=== PATIENT | male | born 1995 | race Hispanic/Latino ===

== ENCOUNTER 2020-03-15 09:16 | Emergency (ER) | payer OTHER ==
[~2020-03-15] VITALS: Ht 177.8 cm; Wt 87.7 kg
--- NOTE | 2020-03-15 09:46 | Emergency Department Note ---
History of Present Illnes History of Present Illness Chief Complaint: painful foreskin tear while having sex History of Present Illness This is a 24 year old male. was doing well until 1 week ago then ripped the foreskin frenelum while having sex. then today started to have the same pain when having sex. Historian: Patient Arrival Mode: Car History limited by: condition of the patient (normal) Water Resource Specialist Required: No Onset (how long ago): week(s) (1) Location: see above Quality: sharp Radiation: Reports non-radiation Severity: moderate Onset quality: sudden Duration (how long): week(s) (1) Timing of current episode: constant Progression: unchanged Chronicity: recurrent Context: Reports trauma/injury Relieving factors: rest Exacerbating factors: movement Associated symptoms: Reports denies other symptoms Treatments prior to arrival: none Past Medical/Family History Physician Review I have reviewed the patient's past medical and family history. Any updates have been documented here. Past Medical History Recent Fever: No Clinical Suspicion of Infectio: No New/Unexplained Change in Ment: No Past Medical History: None Other Surgery: right arm surgery ankle surgery Social History Smoking Cessation: Never Smoker Counseling Performed: No Alcohol Use: None Any Illegal Drug Use: No Physically hurt or threatened: No Other Any Pre-Existing Lines (PICC,: No Review of Systems Review of Systems Constitutional: Reports no symptoms EENTM: Reports no symptoms Cardiovascular: Reports no symptoms Respiratory: Reports no symptoms Gastrointestinal: Reports no symptoms Genitourinary: Reports as per HPI Musculoskeletal: Reports no symptoms Integumentary: Reports no symptoms Neurological: Reports no symptoms Psychological: Reports no symptoms Endocrine: Reports no symptoms Hematological/Lymphatic: Reports no symptoms Review of other systems: All other systems negative Physical Exam Related Data Allergies: Coded Allergies: No Known Allergies (Unverified , 03/15/20) Triage Vital Signs Vital Signs Date Time Temp Pulse Resp B/P (MAP) Pulse Ox O2 Delivery O2 Flow Rate FiO2 03/15/20 09:22 98.5 60 16 119/69 99 Room Air Vital signs reviewed: Yes Physical Exam CONSTITUTIONAL Constitutional: Present well-developed, Present well-nourished HENT HENT: Present normocephalic, Present atraumatic, Present oropharynx clear/moist, Present nose normal HENT L/R: Present left ext ear normal, Present right ext ear normal EYES Eyes: Reports PERRL, Reports conjunctivae normal NECK Neck: Present ROM normal PULMONARY Pulmonary: Present effort normal, Present breath sounds normal CARDIOVASCULAR Cardiovascular: Present regular rhythm, Present heart sounds normal, Present capillary refill normal, Present normal rate GASTROINTESTINAL Abdominal: Present soft, Present nontender, Present bowel sounds normal GENITOURINARY Genitourinary: Present other (foreskin frenulum tear. no bleeding) SKIN Skin: Present warm, Present dry MUSCULOSKELETAL Musculoskeletal: Present ROM normal NEUROLOGICAL Neurological: Present alert, Present oriented x 3, Present no gross motor or sensory deficits PSYCHOLOGICAL Psychological: Present mood/affect normal, Present judgement normal Assessment & Plan Medical Decision Making MDM see below Assessment & Plan Final Impression: (1) Foreskin problem Depart Disposition: HOME, SELF-CARE Last Vital Signs Date Time Temp Pulse Resp B/P (MAP) Pulse Ox O2 Delivery O2 Flow Rate FiO2 03/15/20 09:22 98.5 60 16 119/69 99 Room Air FLOWERSHILDA IRAIDA Mar 15, 2020 09:46
--- OUTSIDE RECORDS SUMMARY | 2020-03-21 17:59 | XMS REPORT | Clinical Summary ---
Author Author [facility] Address Unknown Phone Unavailable Care Team Providers Care Engineer Name Role Phone PCP Unavailable Allergies No Known Allergies Medications Not on file Active Problems Not on file Social History Date Tobacco Use Types Packs/Day Years Used Never Assessed Sex Assigned at Date Recorded Not on file Last Filed Vital Signs Not on file Plan of Treatment Health Maintenance Due Date Last Done Comments INFLUENZA VACCINE (#1) 2020 Results Not on fileafter 03/15/2019 Insurance Type Payer Benefit Subscriber ID Effective Phone Address Plan / Dates Group HMO/POS [facility] [id number] CARE POS [employer] [address] (Home) [place], [place] [phone]
--- OUTSIDE RECORDS SUMMARY | 2020-03-21 17:59 | XMS REPORT | Continuity of Care Document ---
Author Author [facility] t Organization [facility] Address [address] [place] [address] Phone Unavailable Care Team Providers Care Salt Operator Name Role Phone Unavailable Unavailable Payers Payer Name Policy Type Policy Number Effective Date Expiration Date S ource Problems This patient has no known problems. Allergies, Adverse Reactions, Alerts Allergy Name Allergy Type Status Severity Reaction(s) Onset Date Inacti ve Date Treating Clinician Comments Source No Known Allergies DA Active U 2018-08-29 00:00:00 [facility] No Known Contrast Allergies DA Active U 2007-08-25 00:00: 00 [facility] No Known Drug Allergies DA Active U 2007-08-25 00:00:00 [facility] No Known Food Allergies DA Active U 2007-08-25 00:00:00 [facility] No Known Other Allergies DA Active U 2007-08-25 00:00:00 [facility] Social History Social Habit Start Date Stop Date Quantity Comments Source Sex Assigned At [facility] Medications This patient has no known medications. Procedures This patient has no known procedures. Plan of Care Planned Activity Planned Date Details Comments Source Future Scheduled Test 2020-01-16 00:00:00 INFLUENZA VACCINE (#1) [code = INFLUENZA VACCINE (#1)] [facility] Test Description Test Time Test Comments Results Result Comments Source MR, CARDIAC, WITHOUT 2018-09-30 17:57:00 Reason for Exam:->cardi ac arrest FINAL REPORT Cardiac MRI, 30 Sep 2018 INDICATION: This is a 23-year old male with aborted sudden cardiac on August 2018, with collapse and whilst running, presents for compressive cardiac assessment. Scanning blood pressure was 102/43, patient weight 198 pounds, with height of 70 inches. Body surface area is estimated to be approximately 2.11 sq m. TECHNIQUE: [employer] DARWIN MRI scanner. Morphologic and dynamic cine imaging was performed in multiple projections before and after contrast administration. Thereafter, gadolinium was administered, which was then followed by viability/scar imaging. A phased array surface coil was used for enhanced resolution and [id number] ratio. Please refer to the contrast sheet scanned in the EPIC system for the amount and route of contrast given. FINDINGS: The chest wall and mediastinum are unremarkable. Limited imaging of the lungs reveals no gross abnormality; MR is not optimizing assessment of pulmonary parenchymal lung disease. The cardiac chambers demonstrate normal atrioventricular concordance and systemic and pulmonary venous return. The thoracic aorta is normal in course, calibre, and contour. In the parasternal long axis orientation, the aortic root measure 3.6 cm at that is still within normal reference range. The pericardium and pulmonary arteries have normal appearance. No pericardial effusion is seen in the central pulmonary artery is normal in calibre. The left ventricle is normal in size, shape, and function. There are no segmental wall motion abnormalities. Normal systolic thickening is seen throughout the right ventricular myocardium, including the left ventricular outflow tract. No generalised or localised myocardial hypertrophy is appreciated. Quantitative values are as follows: EDV = 209 cc; ESV = 85 cc; stroke volume = 124 cc; and ejection fraction = 59%. Calculated absolute cardiac output = 8.1 liters/min. Absolute left ventricular mass = 112 grams. Indexed LVEDV = 99 cc/sq m that is still within normal reference range. There is no evidence of hypertrophic cardiomyopathy or left ventricular non-compaction. Viability / scar imaging reveals full thickness, viable myocardium in the entire left ventricle. There is no prior myocardial damage. Ventricular thrombus is not identified. Global left ventricular long axis strain is estimated to be -23.5%, with normal MRI reference range for male of -16.5 + / - 2.2%. A focus examination was performed in the right ventricle, including the infundibulum. There is no definitive findings to suggest ARVD. Specifically, there is no fatty or fibrous replacement of the right ventricle. No regional wall motion abnormalities are identified including the right ventricular outflow tract. Overall right ventricular function is normal. There is no abnormal enhancement of the right ventricular myocardium after gadolinium administration. Quantitative right ventricular functional values are as follows: EDV = 214 cc; ESV = 98 cc; stroke volume = 116 cc; and ejection fraction = 54%. Indexed RVEDV = 101 cc/sq m that is still within normal reference range. In the dedicated gradient echo images, the left coronary artery arises from the left sinus of Valsalva, that give rise to the left anterior descending the left circumflex artery. The right coronary artery arises from the right sinus of Valsalva. Cine imaging and flow quantification reveal normal aortic, mitral, and tricuspid valve function. No evidence of mitral valve prolapse or aortic stenosis is identified. Left atrial size is unremarkable in the parasternal long axis orientation. CONCLUSIONS: 1. The left ventricle is normal in size and function. Ejection fraction is quantified to be 59%. Quantitative left ventricular functional values are as described above. Viability/scar imaging reveals full thickness, viable appearing myocardium in the entire left ventricle. No abnormal enhancement of the myocardium is seen after contrast administration. No imaging findings of hypertrophic cardiomyopathy, hypertrophic cardiomyopathy, all left ventricular noncompaction. Global left ventricular long axis strain is well within normal reference range. 2. There is no definitive MRI findings to indicate the presence of any right ventricular cardiomyopathy. There is no focal or generalised aneurysmal dilation of the right ventricle. Normal contraction is seen in the right ventricular myocardium. No regional wall motion abnormalities are identified. Right ventricular function is normal. There is no abnormal enhancement of the right ventricular myocardium after gadolinium administration. There is no imaging criteria for ARVD. Quantitative right ventricular functional values are as described above. 3. Normal coronary artery origins. 4. Major findings were discussed with Dr. Waters at the time of dictation. Signed: Guanaco Ross MDReport Verified Date/Time: 09/30/2018 17:57:28 Reading Location: [place] [address] Cardiology MRI AWAKE AND DROWSY 2018-09-30 12:46:00 DATE OF REPORT: 09/30/2018NAME: Caroline MoffettnaMRN: [id number] of : 1995ACC: [id number]: [id number] time: 10:34Stop time: 11:05ICD-10: R56.9 CPT Code: 68817 HISTORY: Caroline Madrid is a 23 y.o. male with history of cardiac arrest on 08/29/18, with some unusual movements at that time ? seizure MEDICATIONS THAT COULD AFFECT EEG: None TECHNICAL SUMMARY: This is a digital EEG recorded with 32 input channels on a [employer] system, reviewed with bipolar and referential montages using the modified combinatorial system nomenclature. DESCRIPTION OF RECORD: During the maximally alert state, a 9-10 Hz posterior dominant rhythm was seen that was symmetric, reactive to eye opening and well regulated. More anteriorly, low voltage frontocentral beta predominated. Drowsiness was characterized by alpha attenuation and increased frontocentral theta, vertex sharp transients and POSTS. Stage 2 sleep was reached characterized by symmetric sleep spindles and K-complexes. HV: Adequate hyperventilation for 3 minutes is associated with a slight build up of slowing symmetrically. PHOTIC STIMULATION: Photic stimulation was done from 3-30 Hz;photoparoxysmal responses were absent. ELECTROCARDIOGRAM: EKG tracing reviewed, showing normal sinus rhythm IMPRESSION: Normal awake, drowsy, and asleep EEG study. There is no evidence for epileptiform abnormality, including a bsence of electrographic seizure. CLINICAL CORRELATION: An EEG without epileptiform discharges does not exclude the possibility of epilepsy. Lexi Patel MD, PhDEpilepsy Fellow Sukhjinder Engle MDNeurophysiology/Epilepsy Attending C METABOLIC PANEL 2018-09-01 05:22:00 Test Item SODIUM (test code = NA) 142 mmol/L 136-145 N POTASSIUM (test code = K) 3.8 mmol/L 3.5-5.1 N CHLORIDE (test code = CL) 108.0 mmol/L 98-107 H CARBON DIOXIDE (test code = CO2) 26.0 mmol/L 21-32 N ANION GAP (test code = GAP) 11.8 10-20 N GLUCOSE (test code = GLU) 90 mg/dL 74-106 N BLOOD UREA NITROGEN (test code = BUN) 13 mg/dL 7-18 N GLOMERULAR FILTRATION RATE (test code = GFR) > 60 mL/min >=60 Estimated GFR by using Modified MDRD formula.Chronic kidney disease is defined as either kidney damageor GFR <60 mL/min/1.73 m2 for >3 months. CREATININE (test code = CREAT) 0.80 mg/dL 0.7-1.3 N BUN/CREATININE RATIO (test code = BUN/CREA) 16.3 10-20 N CALCIUM (test code = CA) 8.9 mg/dL 8.5-10.1 N CBC W/AUTO [id number] 05:06:00* Test Item Value Reference Range Interpretation Comments WHITE BLOOD CELL (test code = WBC) 7.3 K/mm3 4.5-12.5 N RED BLOOD CELL (test code = RBC) 5.10 mill/mm3 4.0-5.8 N HEMOGLOBIN (test code = HGB) 15.0 gram/dL 13.0-17.5 N HEMATOCRIT (test code = HCT) 46.7 % 42.0-52.0 N MEAN CELL VOLUME (test code = MCV) 91.6 fL 80-98 N MEAN CELL HGB (test code = MCH) 29.4 picogram 27.0-33.0 N MEAN CELL HGB CONCETRATION (test code = MCHC) 32.1 gram/dL 33.0-36. 0 L RED CELL DISTRIBUTION WIDTH (test code = RDW) 12.8 % 11.6-16. 2 N RED CELL DISTRIBUTION WIDTH SD (test code = RDW-SD) 42.8 fL 37 .0-51.0 N PLATELET COUNT (test code = PLT) 214 K/mm3 150-450 N MEAN PLATELET VOLUME (test code = MPV) 11.1 fL 6.7-11.0 H NEUTROPHIL % (test code = NT%) 47.5 % 39.0-69.0 N IMMATURE GRANULOCYTE % (test code = IG%) 0.3 % 0.0-5.0 N LYMPHOCYTE % (test code = LY%) 37.9 % 25.0-55.0 N MONOCYTE % (test code = MO%) 9.2 % 0.0-10.0 N EOSINOPHIL % (test code = EO%) 4.7 % 0.0-5.0 N BASOPHIL % (test code = BA%) 0.4 % 0.0-1.0 N NUCLEATED RBC % (test code = NRBC%) 0.0 % 0-0 N NEUTROPHIL # (test code = NT#) 3.48 K/mm3 1.8-7.7 N IMMATURE GRANULOCYTE # (test code = IG#) 0.02 x10 3/uL 0-0.03 N LYMPHOCYTE # (test code = LY#) 2.77 K/mm3 1.0-5.0 N MONOCYTE # (test code = MO#) 0.67 K/mm3 0-0.8 N EOSINOPHIL # (test code = EO#) 0.34 K/mm3 0.0-0.5 N BASOPHIL # (test code = BA#) 0.03 K/mm3 0.0-0.2 N NUCLEATED RBC # (test code = NRBC#) 0.00 K/mm3 0.0-0.1 N MANUAL DIFF REQUIRED (test code = MDIFF) NO CBC W/AUTO [id number] 05:02:00* Test Item Value Reference Range Interpretation Comments WHITE BLOOD CELL (test code = WBC) K/mm3 4.5-12.5 RED BLOOD CELL (test code = RBC) mill/mm3 4.0-5.8 HEMOGLOBIN (test code = HGB) 15.0 gram/dL 13.0-17.5 N HEMATOCRIT (test code = HCT) 46.7 % 42.0-52.0 N MEAN CELL VOLUME (test code = MCV) fL 80-98 MEAN CELL HGB (test code = MCH) picogram 27.0-33.0 MEAN CELL HGB CONCETRATION (test code = MCHC) gram/dL 33.0-36. 0 RED CELL DISTRIBUTION WIDTH (test code = RDW) % 11.6-16. 2 RED CELL DISTRIBUTION WIDTH SD (test code = RDW-SD) fL 37 .0-51.0 PLATELET COUNT (test code = PLT) K/mm3 150-450 MEAN PLATELET VOLUME (test code = MPV) fL 6.7-11.0 NEUTROPHIL % (test code = NT%) % 39.0-69.0 IMMATURE GRANULOCYTE % (test code = IG%) % 0.0-5.0 LYMPHOCYTE % (test code = LY%) % 25.0-55.0 MONOCYTE % (test code = MO%) % 0.0-10.0 EOSINOPHIL % (test code = EO%) % 0.0-5.0 BASOPHIL % (test code = BA%) % 0.0-1.0 NEUTROPHIL # (test code = NT#) K/mm3 1.8-7.7 LYMPHOCYTE # (test code = LY#) K/mm3 1.0-5.0 MONOCYTE # (test code = MO#) K/mm3 0-0.8 EOSINOPHIL # (test code = EO#) K/mm3 0.0-0.5 BASOPHIL # (test code = BA#) K/mm3 0.0-0.2 [id number] 07:29:00* Test Item Value Reference Range Interpretation Comments GLUBED (test code = GLUBED) 126 mg/dL 74-106 H Performed by certified autocad operator at [facility] BASIC METABOLIC [id number] 06:34:00* Test Item Value Reference Range Interpretation Comments SODIUM (test code = NA) 143 mmol/L 136-145 N POTASSIUM (test code = K) 3.9 mmol/L 3.5-5.1 N CHLORIDE (test code = CL) 111.0 mmol/L 98-107 H CARBON DIOXIDE (test code = CO2) 26.0 mmol/L 21-32 N ANION GAP (test code = GAP) 9.9 10-20 L GLUCOSE (test code = GLU) 96 mg/dL 74-106 N BLOOD UREA NITROGEN (test code = BUN) 7 mg/dL 7-18 N GLOMERULAR FILTRATION RATE (test code = GFR) > 60 mL/min >=60 Estimated GFR by using Modified MDRD formula.Chronic kidney disease is defined as either kidney damageor GFR <60 mL/min/1.73 m2 for >3 months. CREATININE (test code = CREAT) 0.70 mg/dL 0.7-1.3 N BUN/CREATININE RATIO (test code = BUN/CREA) 10.0 10-20 N CALCIUM (test code = CA) 8.4 mg/dL 8.5-10.1 L BASIC METABOLIC [id number] 06:30:00* Test Item Value Reference Range Interpretation Comments SODIUM (test code = NA) 143 mmol/L 136-145 N POTASSIUM (test code = K) 3.9 mmol/L 3.5-5.1 N CHLORIDE (test code = CL) 111.0 mmol/L 98-107 H CARBON DIOXIDE (test code = CO2) mmol/L 21-32 ANION GAP (test code = GAP) 10-20 GLUCOSE (test code = GLU) mg/dL 74-106 BLOOD UREA NITROGEN (test code = BUN) mg/dL 7-18 GLOMERULAR FILTRATION RATE (test code = GFR) mL/min >=60 CREATININE (test code = CREAT) mg/dL 0.7-1.3 BUN/CREATININE RATIO (test code = BUN/CREA) 10-20 CALCIUM (test code = CA) mg/dL 8.5-10.1 CBC W/AUTO [id number] 05:16:00* Test Item Value Reference Range Interpretation Comments WHITE BLOOD CELL (test code = WBC) 6.6 K/mm3 4.5-12.5 N RED BLOOD CELL (test code = RBC) 4.76 mill/mm3 4.0-5.8 N HEMOGLOBIN (test code = HGB) 14.0 gram/dL 13.0-17.5 N HEMATOCRIT (test code = HCT) 43.5 % 42.0-52.0 N MEAN CELL VOLUME (test code = MCV) 91.4 fL 80-98 N MEAN CELL HGB (test code = MCH) 29.4 picogram 27.0-33.0 N MEAN CELL HGB CONCETRATION (test code = MCHC) 32.2 gram/dL 33.0-36. 0 L RED CELL DISTRIBUTION WIDTH (test code = RDW) 12.8 % 11.6-16. 2 N RED CELL DISTRIBUTION WIDTH SD (test code = RDW-SD) 42.7 fL 37 .0-51.0 N PLATELET COUNT (test code = PLT) 210 K/mm3 150-450 N MEAN PLATELET VOLUME (test code = MPV) 11.4 fL 6.7-11.0 H NEUTROPHIL % (test code = NT%) 42.6 % 39.0-69.0 N IMMATURE GRANULOCYTE % (test code = IG%) 0.3 % 0.0-5.0 N LYMPHOCYTE % (test code = LY%) 42.7 % 25.0-55.0 N MONOCYTE % (test code = MO%) 10.7 % 0.0-10.0 H EOSINOPHIL % (test code = EO%) 3.2 % 0.0-5.0 N BASOPHIL % (test code = BA%) 0.5 % 0.0-1.0 N NUCLEATED RBC % (test code = NRBC%) 0.0 % 0-0 N NEUTROPHIL # (test code = NT#) 2.80 K/mm3 1.8-7.7 N IMMATURE GRANULOCYTE # (test code = IG#) 0.02 x10 3/uL 0-0.03 N LYMPHOCYTE # (test code = LY#) 2.80 K/mm3 1.0-5.0 N MONOCYTE # (test code = MO#) 0.70 K/mm3 0-0.8 N EOSINOPHIL # (test code = EO#) 0.21 K/mm3 0.0-0.5 N BASOPHIL # (test code = BA#) 0.03 K/mm3 0.0-0.2 N NUCLEATED RBC # (test code = NRBC#) 0.00 K/mm3 0.0-0.1 N LIPID PROFILE (CORONARY RISK)2018 22:59:00* Test Item Value Reference Range Interpretation Comments TRIGLYCERIDES (test code = TRIG) 46 mg/dL 20-150 N CHOLESTEROL (test code = CHOL) 114 mg/dL 0-200 N CHOLESTEROL/HDL RATIO (test code = CHOLHDL) 1.0 RATIO 0-4.9 N RISK ASSOCIATED WITH CHOL/HDL RATIOS: Risk Male Female1/2 AVERAGE 3.43 3.27AVERAGE 4.97 4.442X AVERAGE 9.55 7.053X AVERAGE 23.39 11.04 REFERENCE VALUE IS RELATED TO RISK LEVELS ASRECOMMENDED BY THE OWEN. HEART, LUNG, AND BLOOD INST. HDL CHOLESTEROL (test code = HDL) 61 mg/dL 40-60 H LIPOPROTEIN LDL (test code = LDL) 51 mg/dL 100-129 L Reference Interval: mg/dL mmol/L Optimal <100 <2.6Near/above optimal 100-129 2.6- 3.3Borderline High 130-159 3.4-4.1High 160-189 4.1-4.9Very High >=190 >=4.9========= This LDL result is a direct measurement.========= [id number] 22:59:00* Test Item Value Reference Range Interpretation Comments CKMB (test code = CKMBT) 1.9 ng/mL 0-6.0 N [id number] 22:59:00* Test Item Value Reference Range Interpretation Comments TROPONIN-I (test code = TROPI) 0.087 ng/mL 0-0.045 HH RESULT VERIFIED BY REPEAT ANALYSIS - MRI BRAIN W/O [id number] 12:46:00 FAX: Mackenzie Kaur MD [phone] Wilsey: [facility]: [facility] FAX: Sukhjinder Stone NP [phone] Name: JEANMARIECAROLINE URRUTIA [facility] : 1995 Age/S: 23/M [address] Unit #: [id number] Loc: [place] [address] Phys: Sukhjinder Stone NP Acct: [id number] Dis Date: Status: ADM IN PHONE #: [phone] Exam Date: 2018 1232 FAX #: [phone] Reason: cardiac arrest/AMS EXAMS: CPT CODE: [id number] MRI BRAIN W/O CONTRAST [id number] HISTORY: Cardiac arrest and confusion. COMPARISON: Head CT from previous day. MRI brain without contrast: No acute territorial vascular or acute lacunar infarction. No MR evide nce for hemorrhage is noted. The palmer-white matter differentiation is pres erved. No cerebral edema. No extra-axial fluid collections noted. No white matter lesions. No herniation, hydrocephalus or midline shift. Ventricle remains midline. Expected flow-voids are noted within the major in tracranial vasculature. VII and VIII nerve complex are symmetrical and nor mal. Mastoid air cells are clear. Sinuses are clear. Intraorbital contents are unremarkable. Midbrain, winnie and medulla are without ma ss effect. No cerebellar ectopia. Pituitary gland, optic chiasm and corpus callosum are normal. Clivus with normal marrow signal. Symmetrical hippoc ampi. No mesial temporal sclerosis. No parenchymal mass this noncontrast s tudy. IMPRESSION: No acute territorial vascula r or acute lacunar infarction. Palmer-white matter differentiation is pres erved. No cerebral edema. No herniation, hydrocephalus or midline shift. at 1246 Reported and signed by: Elton Velázquez M.D. CC: Mackenzie Mathew MD; Sukhjinder Stone NP Technologist: CONNIE GIL,RT - MRI Trntxrd Date/Time/By: 2018 (1 149) : By: [email or web address] Orig Print D/T: S: 2018 (3482) PAGE 1 Signed Report [id number] 12:27:00* Test Item Value Reference Range Interpretation Comments TROPONIN-I (test code = TROPI) 0.155 ng/mL 0-0.045 COMMENTS TO DISTRICT DIRECTOR: COLLECT 3 HOURS AFTER PREVIOUS [id number] 08:43:00* Test Item Value Reference Range Interpretation Comments TROPONIN-I (test code = TROPI) 0.211 ng/mL 0-0.045 COMPREHENSIVE METABOLIC [id number] 08:39:00* Test Item Value Reference Range Interpretation Comments SODIUM (test code = NA) 143 mmol/L 136-145 N POTASSIUM (test code = K) 3.7 mmol/L 3.5-5.1 N CHLORIDE (test code = CL) 113.0 mmol/L 98-107 H CARBON DIOXIDE (test code = CO2) 22.0 mmol/L 21-32 N ANION GAP (test code = GAP) 11.7 10-20 N GLUCOSE (test code = GLU) 100 mg/dL 74-106 N BLOOD UREA NITROGEN (test code = BUN) 8 mg/dL 7-18 N GLOMERULAR FILTRATION RATE (test code = GFR) > 60 mL/min >=60 Estimated GFR by using Modified MDRD formula.Chronic kidney disease is defined as either kidney damageor GFR <60 mL/min/1.73 m2 for >3 months. CREATININE (test code = CREAT) 0.80 mg/dL 0.7-1.3 N BUN/CREATININE RATIO (test code = BUN/CREA) 10.0 10-20 N TOTAL PROTEIN (test code = PROT) 6.4 gram/dL 6.4-8.2 N ALBUMIN (test code = ALB) 3.8 g/dL 3.4-5.0 N GLOBULIN (test code = GLOB) 2.6 gram/dL 2.7-4.2 L ALBUMIN/GLOBULIN RATIO (test code = A/G) 1.5 0.75-1.50 N CALCIUM (test code = CA) 8.6 mg/dL 8.5-10.1 N BILIRUBIN TOTAL (test code = BILT) 1.50 mg/dL 0.0-1.0 H SGOT/AST (test code = AST) 83 IUnit/L 15-37 H SGPT/ALT (test code = ALT) 145 IUnit/L 12-78 H ALKALINE PHOSPHATASE TOTAL (test code = ALKP) 66 IUnit/L 45-117 N Note change in reference range due to change in reagent. COMPREHENSIVE METABOLIC [id number] 08:30:00* Test Item Value Reference Range Interpretation Comments SODIUM (test code = NA) 143 mmol/L 136-145 N POTASSIUM (test code = K) 3.7 mmol/L 3.5-5.1 N CHLORIDE (test code = CL) 113.0 mmol/L 98-107 H CARBON DIOXIDE (test code = CO2) mmol/L 21-32 ANION GAP (test code = GAP) 10-20 GLUCOSE (test code = GLU) mg/dL 74-106 BLOOD UREA NITROGEN (test code = BUN) mg/dL 7-18 GLOMERULAR FILTRATION RATE (test code = GFR) mL/min >=60 CREATININE (test code = CREAT) mg/dL 0.7-1.3 BUN/CREATININE RATIO (test code = BUN/CREA) 10-20 TOTAL PROTEIN (test code = PROT) gram/dL 6.4-8.2 ALBUMIN (test code = ALB) g/dL 3.4-5.0 GLOBULIN (test code = GLOB) gram/dL 2.7-4.2 ALBUMIN/GLOBULIN RATIO (test code = A/G) 0.75-1.50 CALCIUM (test code = CA) mg/dL 8.5-10.1 BILIRUBIN TOTAL (test code = BILT) mg/dL 0.0-1.0 SGOT/AST (test code = AST) IUnit/L 15-37 SGPT/ALT (test code = ALT) IUnit/L 12-78 ALKALINE PHOSPHATASE TOTAL (test code = ALKP) IUnit/L 45-117 [id number] 05:00:00* Test Item Value Reference Range Interpretation Comments TROPONIN-I (test code = TROPI) 0.306 ng/mL 0-0.045 COMMENTS TO DISTRICT DIRECTOR: COLLECT 3 HOURS AFTER PREVIOUS SAMPLECREATINE KINASE (CK)2018 02:16:00* Test Item Value Reference Range Interpretation Comments CREATINE KINASE (CK) (test code = CK) 631 IUnit/L 26-208 H [id number] 02:02:00* Test Item Value Reference Range Interpretation Comments TROPONIN-I (test code = TROPI) 0.453 ng/mL 0-0.045 CBC W/AUTO [id number] 01:41:00* Test Item Value Reference Range Interpretation Comments WHITE BLOOD CELL (test code = WBC) 12.6 K/mm3 4.5-12.5 H RED BLOOD CELL (test code = RBC) 4.93 mill/mm3 4.0-5.8 N HEMOGLOBIN (test code = HGB) 14.6 gram/dL 13.0-17.5 N HEMATOCRIT (test code = HCT) 45.8 % 42.0-52.0 N MEAN CELL VOLUME (test code = MCV) 92.9 fL 80-98 N MEAN CELL HGB (test code = MCH) 29.6 picogram 27.0-33.0 N MEAN CELL HGB CONCETRATION (test code = MCHC) 31.9 gram/dL 33.0-36. 0 L RED CELL DISTRIBUTION WIDTH (test code = RDW) 12.8 % 11.6-16. 2 N RED CELL DISTRIBUTION WIDTH SD (test code = RDW-SD) 43.7 fL 37 .0-51.0 N PLATELET COUNT (test code = PLT) 239 K/mm3 150-450 N MEAN PLATELET VOLUME (test code = MPV) 11.8 fL 6.7-11.0 H NEUTROPHIL % (test code = NT%) 79.4 % 39.0-69.0 H IMMATURE GRANULOCYTE % (test code = IG%) 0.3 % 0.0-5.0 N LYMPHOCYTE % (test code = LY%) 14.3 % 25.0-55.0 L MONOCYTE % (test code = MO%) 5.6 % 0.0-10.0 N EOSINOPHIL % (test code = EO%) 0.2 % 0.0-5.0 N BASOPHIL % (test code = BA%) 0.2 % 0.0-1.0 N NUCLEATED RBC % (test code = NRBC%) 0.0 % 0-0 N NEUTROPHIL # (test code = NT#) 9.97 K/mm3 1.8-7.7 H IMMATURE GRANULOCYTE # (test code = IG#) 0.04 x10 3/uL 0-0.03 H LYMPHOCYTE # (test code = LY#) 1.80 K/mm3 1.0-5.0 N MONOCYTE # (test code = MO#) 0.70 K/mm3 0-0.8 N EOSINOPHIL # (test code = EO#) 0.02 K/mm3 0.0-0.5 N BASOPHIL # (test code = BA#) 0.02 K/mm3 0.0-0.2 N NUCLEATED RBC # (test code = NRBC#) 0.00 K/mm3 0.0-0.1 N CBC W/AUTO [id number] 01:35:00* Test Item Value Reference Range Interpretation Comments WHITE BLOOD CELL (test code = WBC) K/mm3 4.5-12.5 RED BLOOD CELL (test code = RBC) mill/mm3 4.0-5.8 HEMOGLOBIN (test code = HGB) 14.6 gram/dL 13.0-17.5 N HEMATOCRIT (test code = HCT) 45.8 % 42.0-52.0 N MEAN CELL VOLUME (test code = MCV) fL 80-98 MEAN CELL HGB (test code = MCH) picogram 27.0-33.0 MEAN CELL HGB CONCETRATION (test code = MCHC) gram/dL 33.0-36. 0 RED CELL DISTRIBUTION WIDTH (test code = RDW) % 11.6-16. 2 RED CELL DISTRIBUTION WIDTH SD (test code = RDW-SD) fL 37 .0-51.0 PLATELET COUNT (test code = PLT) K/mm3 150-450 MEAN PLATELET VOLUME (test code = MPV) fL 6.7-11.0 NEUTROPHIL % (test code = NT%) % 39.0-69.0 IMMATURE GRANULOCYTE % (test code = IG%) % 0.0-5.0 LYMPHOCYTE % (test code = LY%) % 25.0-55.0 MONOCYTE % (test code = MO%) % 0.0-10.0 EOSINOPHIL % (test code = EO%) % 0.0-5.0 BASOPHIL % (test code = BA%) % 0.0-1.0 NEUTROPHIL # (test code = NT#) K/mm3 1.8-7.7 LYMPHOCYTE # (test code = LY#) K/mm3 1.0-5.0 MONOCYTE # (test code = MO#) K/mm3 0-0.8 EOSINOPHIL # (test code = EO#) K/mm3 0.0-0.5 BASOPHIL # (test code = BA#) K/mm3 0.0-0.2 - US ABDOMEN [id number] 23:37:00 Name: CAROLINE M[facility] : 1995 Age/S: 22 / M [address] Unit #: [id number] Loc: [place] [address] Phys: Mackenzie Mathew MD Acct: [id number] Dis Date: Status: ADM IN PHONE #: [phone] Exam Date: 08/29/[id number] FAX #: [phone] Reason: elevated LFTs, cardiac arrest, elevated ammonia EXAMS: CPT CODE: [id number] US ABDOMEN COMPLETE [id number] Site: [id number] ULTRASOUND: Abdominal Ultrasound. History: elevated LFTs, cardiac arrest, elevated ammonia Comparison: None. Technique: Ultrasound examination of the abdomen was performed using Grayscale, color, and spectral imaging. Findings: This examination is limited due to patient condition. The liver measures 14.35 cm in length, within normal limits. The visualized liver demonstrates smooth borders, homogenous parenchymal echotexture and echogenicity. No focal lesion is seen within it. The main portal vein demonstrates hepatopedal flow. There is no intra or extra hepatic biliary dilatation. The common bile duct measures 3.2 mm, within normal limits. The gallbladder is physiologically distended. The gallbladder wall measures 1.4 mm in thickness, within normal limits. There are no intraluminal gallstones. Sonographic Lanier's sign is negative. The visualized pancreas appears normal. The right kidney measures 11.2 x 5.4 x 4.2 cm. The left kidney measures 9.6 x 5.7 x 5.2 cm. There is normal parenchymal echogenicity and corticomedullary differentiation on either side. There is no hydronephrosis. There is an echogenic right renal focus measuring 0.6 x 0 .6 x 0.7 cm. The spleen measures 11.9 x 4.1 x 3.3 cm. The visualized portions of the aorta and IVC are normal. Impre ssion: Limited study. Normal sonographic appearance of the liver . No biliary dilatation. Right renal echogenic focus, possibly reflecti ng a renal calculus. No hydronephrosis. No sonographic evidence for acute cholecystitis or cholelithiasis. PAGE 1 S igned Report (CONTINUED) Name: CAROLINE MURRY [facility] : 1995 Age/S: 22 / M [address] Unit #: [id number] Loc: [place] [address] Phys: Mackenzie Mathew MD Acct: [id number] Dis Date: Status: ADM IN PHONE #: [phone] Exam Date: 08/29/2018 2326 FAX #: [phone] Reason: elevated LFTs, cardiac arrest, elevated ammonia EXAMS: CPT CODE: [id number] US ABDOMEN COMPLETE [id number] <Continued> at 2337 Reported and signed by: Elisabeth Brasher M.D. CC: Mackenzie Mathew MD Technologist: Cristel Richardson RDMS Trnscb Date/Time: 08/29/2018 (5768) [email or web address] Orig Print D/T: S: 08/29/2018 (3469) Probe: PAGE 2 Signed Report URINALYSIS [id number] 21:50:00* Test Item Value Reference Range Interpretation Comments UA COLOR (test code = COLU) STRAW YELLOW UA APPEARANCE (test code = APPU) CLEAR CLEAR UA GLUCOSE DIPSTICK (test code = DGLUU) 50 (Trace) mg/dL NEGATIVE A UA BILIRUBIN DIPSTICK (test code = BILU) NEGATIVE mg/dL NEGATIVE UA KETONE DIPSTICK (test code = KETU) NEGATIVE mg/dL NEGATIVE UA SPECIFIC GRAVITY (test code = SGU) 1.006 1.001-1.035 UA BLOOD DIPSTICK (test code = ARDEN) 1+ (Small) mg/dL NEGATIVE A UA PH DIPSTICK (test code = AKIL) 6.0 5.0-8.0 UA PROTEIN DIPSTICK (test code = PROU) 100 (2+) mg/dL NEGATIVE A UA UROBILINIOGEN DIPSTICK (test code = URO) NEGATIVE mg/dL NEGATIVE UA NITRITE DIPSTICK (test code = REBECCA) NEGATIVE NEGATIVE UA LEUKOCYTE ESTERASE W REFLEX (test code = LEUUR) NEGATIVE Krupa/uL NEGATIVE UA WBC (test code = WBCU) 0-5 per HPF 0-5 UA RBC (test code = RBCU) 0-2 #/HPF 0-5 UA EPITHELIAL CELLS (test code = EPIU) Few (2-5/hpf) per HPF FEW UA BACTERIA (test code = BACU) FEW #/HPF NONE A UA HYALINE CAST (test code = HYALU) 3-5 #/LPF 0-5 UA MUCUS (test code = MUCU) FEW #/LPF FEW Urine Source? Clean CatchDRUGS OF ABUSE SCREEN [id number] 21:50:00* Test Item Value Reference Range Interpretation Comments URN COCAINE (test code = COCAURN) NEGATIVE <300 ng/mL URN CANNABINOIDS (test code = CANNABURN) NEGATIVE <50 ng/mL URN AMPHETAMINE (test code = AMPHETURN) NEGATIVE <1000 ng/mL URN BARBITURATE (test code = BARBITURN) NEGATIVE <200 ng/mL URN BENZODIAZEPINE (test code = BENZOURN) POSITIVE <200 ng/mL A This test provides only a preliminary test result. A morespecific alternate chemical method must be used in order toobtain a confirmed analytical result. Gas chromatography/mass spectrometry (GC/MS) is thepreferred confirmatory method. Other chemical confirmationmethods are available. Clinical consideration and professional judgment should be applied to any drug of abusetest result, particularly when preliminary positive resultsare used.Unconfirmed screening results must not be used fornon-medical purposes (e.g., employment testing, legaltesting). URN OPIATES (test code = OPIATURN) NEGATIVE <300 ng/mL URN PHENCYCLIDINE (PCP) (test code = PHENCURN) NEGATIVE <25 ng/ mL URN METHADONE (test code = METHAURN) NEGATIVE <300 ng/mL Urine Source? Clean CatchURINALYSIS [id number] 21:11:00* Test Item Value Reference Range Interpretation Comments UA COLOR (test code = COLU) STRAW YELLOW UA APPEARANCE (test code = APPU) CLEAR CLEAR UA GLUCOSE DIPSTICK (test code = DGLUU) 50 (Trace) mg/dL NEGATIVE A UA BILIRUBIN DIPSTICK (test code = BILU) NEGATIVE mg/dL NEGATIVE UA KETONE DIPSTICK (test code = KETU) NEGATIVE mg/dL NEGATIVE UA SPECIFIC GRAVITY (test code = SGU) 1.006 1.001-1.035 UA BLOOD DIPSTICK (test code = ARDEN) 1+ (Small) mg/dL NEGATIVE A UA PH DIPSTICK (test code = AKIL) 6.0 5.0-8.0 UA PROTEIN DIPSTICK (test code = PROU) 100 (2+) mg/dL NEGATIVE A UA UROBILINIOGEN DIPSTICK (test code = URO) NEGATIVE mg/dL NEGATIVE UA NITRITE DIPSTICK (test code = REBECCA) NEGATIVE NEGATIVE UA LEUKOCYTE ESTERASE W REFLEX (test code = LEUUR) NEGATIVE Krupa/uL NEGATIVE UA WBC (test code = WBCU) 0-5 per HPF 0-5 UA RBC (test code = RBCU) 0-2 #/HPF 0-5 UA EPITHELIAL CELLS (test code = EPIU) Few (2-5/hpf) per HPF FEW UA BACTERIA (test code = BACU) FEW #/HPF NONE A UA HYALINE CAST (test code = HYALU) 3-5 #/LPF 0-5 UA MUCUS (test code = MUCU) FEW #/LPF FEW Urine Source? Clean CatchDRUGS OF ABUSE SCREEN [id number] 21:11:00* Test Item Value Reference Range Interpretation Comments URN COCAINE (test code = COCAURN) <300 ng/mL URN CANNABINOIDS (test code = CANNABURN) <50 ng/mL URN AMPHETAMINE (test code = AMPHETURN) <1000 ng/mL URN BARBITURATE (test code = BARBITURN) <200 ng/mL URN BENZODIAZEPINE (test code = BENZOURN) <200 ng/mL URN OPIATES (test code = OPIATURN) <300 ng/mL URN PHENCYCLIDINE (PCP) (test code = PHENCURN) <25 ng/ mL URN METHADONE (test code = METHAURN) <300 ng/mL Urine Source? Clean CatchURINALYSIS [id number] 21:08:00* Test Item Value Reference Range Interpretation Comments UA COLOR (test code = COLU) STRAW YELLOW UA APPEARANCE (test code = APPU) CLEAR CLEAR UA GLUCOSE DIPSTICK (test code = DGLUU) 50 (Trace) mg/dL NEGATIVE A UA BILIRUBIN DIPSTICK (test code = BILU) NEGATIVE mg/dL NEGATIVE UA KETONE DIPSTICK (test code = KETU) NEGATIVE mg/dL NEGATIVE UA SPECIFIC GRAVITY (test code = SGU) 1.006 1.001-1.035 UA BLOOD DIPSTICK (test code = ARDEN) 1+ (Small) mg/dL NEGATIVE A UA PH DIPSTICK (test code = AKIL) 6.0 5.0-8.0 UA PROTEIN DIPSTICK (test code = PROU) 100 (2+) mg/dL NEGATIVE A UA UROBILINIOGEN DIPSTICK (test code = URO) NEGATIVE mg/dL NEGATIVE UA NITRITE DIPSTICK (test code = REBECCA) NEGATIVE NEGATIVE UA LEUKOCYTE ESTERASE W REFLEX (test code = LEUUR) NEGATIVE Krupa/uL NEGATIVE UA WBC (test code = WBCU) per HPF 0-5 UA RBC (test code = RBCU) per HPF 0-5 UA EPITHELIAL CELLS (test code = EPIU) per HPF Few UA BACTERIA (test code = BACU) per HPF NONE Urine Source? Clean CatchDRUGS OF ABUSE SCREEN [id number] 21:08:00* Test Item Value Reference Range Interpretation Comments URN COCAINE (test code = COCAURN) <300 ng/mL URN CANNABINOIDS (test code = CANNABURN) <50 ng/mL URN AMPHETAMINE (test code = AMPHETURN) <1000 ng/mL URN BARBITURATE (test code = BARBITURN) <200 ng/mL URN BENZODIAZEPINE (test code = BENZOURN) <200 ng/mL URN OPIATES (test code = OPIATURN) <300 ng/mL URN PHENCYCLIDINE (PCP) (test code = PHENCURN) <25 ng/ mL URN METHADONE (test code = METHAURN) <300 ng/mL Urine Source? Clean CatchBASIC METABOLIC [id number] 20:37:00* Test Item Value Reference Range Interpretation Comments SODIUM (test code = NA) 141 mmol/L 136-145 N POTASSIUM (test code = K) 3.5 mmol/L 3.5-5.1 N CHLORIDE (test code = CL) 110.0 mmol/L 98-107 H CARBON DIOXIDE (test code = CO2) 22.0 mmol/L 21-32 N ANION GAP (test code = GAP) 12.5 10-20 N GLUCOSE (test code = GLU) 98 mg/dL 74-106 N BLOOD UREA NITROGEN (test code = BUN) 11 mg/dL 7-18 N GLOMERULAR FILTRATION RATE (test code = GFR) > 60 mL/min >=60 Estimated GFR by using Modified MDRD formula.Chronic kidney disease is defined as either kidney damageor GFR <60 mL/min/1.73 m2 for >3 months. CREATININE (test code = CREAT) 1.10 mg/dL 0.7-1.3 N BUN/CREATININE RATIO (test code = BUN/CREA) 10.0 10-20 N CALCIUM (test code = CA) 7.7 mg/dL 8.5-10.1 L HEPATIC FUNCTION [id number] 20:37:00* Test Item Value Reference Range Interpretation Comments TOTAL PROTEIN (test code = PROT) 6.0 gram/dL 6.4-8.2 L ALBUMIN (test code = ALB) 3.7 g/dL 3.4-5.0 N GLOBULIN (test code = GLOB) 2.3 gram/dL 2.7-4.2 L ALBUMIN/GLOBULIN RATIO (test code = A/G) 1.6 0.75-1.50 H BILIRUBIN TOTAL (test code = BILT) 0.70 mg/dL 0.0-1.0 N BILIRUBIN DIRECT (test code = BILD) 0.26 mg/dL 0.0-0.20 H SGOT/AST (test code = AST) 153 IUnit/L 15-37 H SGPT/ALT (test code = ALT) 174 IUnit/L 12-78 H ALKALINE PHOSPHATASE TOTAL (test code = ALKP) 70 IUnit/L 45-117 N Note change in reference range due to change in reagent. CREATINE KINASE (CK)2018-08-29 20:37:00* Test Item Value Reference Range Interpretation Comments CREATINE KINASE (CK) (test code = CK) 284 IUnit/L 26-208 H [id number] 20:37:00* Test Item Value Reference Range Interpretation Comments LIPASE (test code = LIP) 70 U/L 73.0-393.0 L THYROID STIMULATING [id number] 20:37:00* Test Item Value Reference Range Interpretation Comments THYROID STIMULATING HORMONE (test code = TSH) 2.070 uIU/mL 0.36-3.7 4 N TSH REFERENCE RANGES: EUTHYROID: 0.35 - 4.3 mIU/mL HYPO : > 5.5 mIU/mL HYPER : < 0.35 mIU/mL [id number] 20:37:00* Test Item Value Reference Range Interpretation Comments TROPONIN-I (test code = TROPI) 0.061 ng/mL 0-0.045 HH Results called to [id number] by V.LAB. 08/29/182036Critical results verified and read back by Nurse? Y [id number] 20:37:00* Test Item Value Reference Range Interpretation Comments ACETAMINOPHEN (test code = ACET) < 10 mcg/mL 10-30 L A RANGE OF 10-30 mcg/mL IS A THERAPEUTIC RANGE. TOXIC CONCENTRATIONS: >150 mcg/mL AT 4 HOURS AFTER INGESTION >= 50 mcg/mL AT 12 HOURS AFTER INGESTION [id number] 20:37:00* Test Item Value Reference Range Interpretation Comments SALICYLATE (test code = LUCY) < 1.7 mg/dL 2.8-20.0 L [id number] 20:37:00* Test Item Value Reference Range Interpretation Comments ALCOHOL (test code = ALC) < 3 mg/dL 0.0-3.0 N -- INTERPRETIVE DATA NOTE: POSITIVE SCREENING RESULTS SHOULD BE CONSIDERED PRESUMPTIVE.WHEN COLLECTED FOR MEDICAL PURPOSES ONLY. SPECIMEN WILL NOTBE COLLECTED BY CHAIN OF CUSTODY.IF A CONFIRMATION OF POSITIVE RESULTS IS DESIRED, ACONFIRMATION TEST MUST BE REQUESTED BY THE PHYSICIAN AT ANADDITIONAL CHARGE TO THE PATIENT. [id number] 20:26:00* Test Item Value Reference Range Interpretation Comments AMMONIA (test code = AMM) 40 umol/L 11-32 H - XR CHEST 1 [id number] 20:26:00 FAX: Lashaun Ahmadi MD [phone] Wilsey: St: PRE Name: CAROLINE CHINCHILLA [facility] : [birth year]/30/18 [birth year] Age/S: 22/M [address] Unit #: [id number] Loc: [place] [address] Phys: Lashaun Ahmadi MD Acct: [id number] Dis Date: Status: PRE ER PHONE #: [phone] Exam Date: 08/29/20182009 FAX #: [phone] Reason: Altered Mental Status EXAMS: CPT CODE: [id number] XR CHEST 1 V [id number] REASON FOR EXAM: Altered M ental Status EXAM ORDER DATE: 08/29/2018 7:33 PM Zane wasserman M.D.: Lashaun Ahmadi MD PROCEDURE: - XR CHEST 1 V COMPARISON: FINDINGS: Portable AP frontal view of the [facility] obtained at 8:07 PM shows diffuse airspace opacity. There is no evidenc e of effusion. The heart size is within normal limits. Pulmonary vasculatu res are minimally congested. IMPRESSION: Diffuse airspace opacities suggestive of pulmonary edema at 2025 Reported and signed by: Jeff Monge M.D. CC: Lashaun Ahmadi MD Technologist: RT Fernando(R Trnscrd Date/Time/By: 08/29/2018 (2025) : By: [email or web address].VTL Orig Print D/T: S: 08/29/2018 (2028) PAGE 1 Signed Report BASIC METABOLIC [id number] 20:19:00* Test Item Value Reference Range Interpretation Comments SODIUM (test code = NA) 141 mmol/L 136-145 N POTASSIUM (test code = K) 3.5 mmol/L 3.5-5.1 N CHLORIDE (test code = CL) 110.0 mmol/L 98-107 H CARBON DIOXIDE (test code = CO2) mmol/L 21-32 ANION GAP (test code = GAP) 10-20 GLUCOSE (test code = GLU) mg/dL 74-106 BLOOD UREA NITROGEN (test code = BUN) mg/dL 7-18 GLOMERULAR FILTRATION RATE (test code = GFR) mL/min >=60 CREATININE (test code = CREAT) mg/dL 0.7-1.3 BUN/CREATININE RATIO (test code = BUN/CREA) 10-20 CALCIUM (test code = CA) mg/dL 8.5-10.1 HEPATIC FUNCTION [id number] 20:19:00* Test Item Value Reference Range Interpretation Comments TOTAL PROTEIN (test code = PROT) gram/dL 6.4-8.2 ALBUMIN (test code = ALB) g/dL 3.4-5.0 GLOBULIN (test code = GLOB) gram/dL 2.7-4.2 ALBUMIN/GLOBULIN RATIO (test code = A/G) 0.75-1.50 BILIRUBIN TOTAL (test code = BILT) mg/dL 0.0-1.0 BILIRUBIN DIRECT (test code = BILD) mg/dL 0.0-0.20 SGOT/AST (test code = AST) IUnit/L 15-37 SGPT/ALT (test code = ALT) IUnit/L 12-78 ALKALINE PHOSPHATASE TOTAL (test code = ALKP) IUnit/L 45-117 CREATINE KINASE (CK)2018-08-29 20:19:00* Test Item Value Reference Range Interpretation Comments CREATINE KINASE (CK) (test code = CK) IUnit/L 26-208 [id number] 20:19:00* Test Item Value Reference Range Interpretation Comments LIPASE (test code = LIP) U/L 73.0-393.0 THYROID STIMULATING [id number] 20:19:00* Test Item Value Reference Range Interpretation Comments THYROID STIMULATING HORMONE (test code = TSH) uIU/mL 0.36-3.7 4 [id number] 20:19:00* Test Item Value Reference Range Interpretation Comments TROPONIN-I (test code = TROPI) ng/mL 0-0.045 [id number] 20:19:00* Test Item Value Reference Range Interpretation Comments ACETAMINOPHEN (test code = ACET) mcg/mL 10-30 [id number] 20:19:00* Test Item Value Reference Range Interpretation Comments SALICYLATE (test code = LUCY) mg/dL 2.8-20.0 [id number] 20:19:00* Test Item Value Reference Range Interpretation Comments ALCOHOL (test code = ALC) mg/dL 0-3 PROTHROMBIN [id number] 20:07:00* Test Item Value Reference Range Interpretation Comments PROTHROMBIN TIME PATIENT (test code = PTP) 12.7 seconds 9.0-14.0 N INTERNATIONAL NORMAL RATIO (test code = INR) 1.1 0.8-1.2 N The therapeutic range for oral anticoagulant therapy formost indications is an international normalized ratio (INR)of between 2.0 and 3.0. The recommended therapeutic INRrange for various clinical situations is listed below: Clinical Situation INR range Pulmonary e mbolism treatment (2.0-3.0)Venous thrombosis treatmentVenous thrombosis prophylaxis (high risk surgery)Prevention of systemic embolism from: Acute myocardial infarction Valvular heart disease Atrial fibrillation Mechanical prosthetic heart valves (2.5-3.5) IS PATIENT ON ANTICOAGULANTS? NTHROMBOPLASTIN TIME [id number] 20:07:00* Test Item Value Reference Range Interpretation Comments THROMBOPLASTIN TIME PARTIAL (test code = PTT) 27.9 seconds 25.0-36. 5 N IS PATIENT ON ANTICOAGULANTS? N- CT HEAD/BRAIN W/O [id number] 20:05:00 Name: CAROLINE MURRY [facility] : 1995 Age/S: 22 / M [address] Unit #: [id number] Loc: [place] [address] Phys: Dell Ahmadi MD Acct: [id number] Di s Date: Status: PRE ER PHONE #: [phone] Exam Date: 08/29/20182001 FAX #: [phone] Reason: Altered Mental Status EXAMS: CPT CODE: [id number] CT HEAD/BRAIN W/O CONT [id number] REASON FOR EXAM: Altered Mental Status EXAM ORDER DATE: 08/29/2018 7:33 PM Ordering Esteban: Lashaun Ahmadi MD PROCEDURE: - CT HEAD/BRA IN W/O CONT COMPARISON: FINDINGS: CT images of the b rain were obtained without IV contrast. Dose modulation, iterative recons truction, and/or weight based adjustment of the MA/KV was utilized to redu ce the radiation dose to as low as reasonably achievable. T he brain parenchyma is within normal limits. The palmer-white matter delinea tion is unremarkable. The ventricles, cisterns, and sulci are unremarkable . There is no evidence of hemorrhage, mass, mass effect. There is no evid ence of acute or old infarct. The calvarium is intact. IM PRESSION: Unremarkable brain. at 2005 Reported and signed by: Jeff Monge M.D. CC: Lashaun Ahmadi MD Technologist:ELISABETH CARTER, RT(R) CT CTDI: DLP: Tr nscb Date/Time: 08/29/2018 (2004) Wayne Orig Print D/ T: S: 08/29/2018 (2007) CTDI: DLP: PAGE 1 Signed Report CBC W/AUTO [id number] 19:56:00* Test Item Value Reference Range Interpretation Comments WHITE BLOOD CELL (test code = WBC) K/mm3 4.5-12.5 RED BLOOD CELL (test code = RBC) mill/mm3 4.0-5.8 HEMOGLOBIN (test code = HGB) 13.9 gram/dL 13.0-17.5 N HEMATOCRIT (test code = HCT) 42.4 % 42.0-52.0 N MEAN CELL VOLUME (test code = MCV) fL 80-98 MEAN CELL HGB (test code = MCH) picogram 27.0-33.0 MEAN CELL HGB CONCETRATION (test code = MCHC) gram/dL 33.0-36. 0 RED CELL DISTRIBUTION WIDTH (test code = RDW) % 11.6-16. 2 RED CELL DISTRIBUTION WIDTH SD (test code = RDW-SD) fL 37 .0-51.0 PLATELET COUNT (test code = PLT) K/mm3 150-450 MEAN PLATELET VOLUME (test code = MPV) fL 6.7-11.0 NEUTROPHIL % (test code = NT%) % 39.0-69.0 IMMATURE GRANULOCYTE % (test code = IG%) % 0.0-5.0 LYMPHOCYTE % (test code = LY%) % 25.0-55.0 MONOCYTE % (test code = MO%) % 0.0-10.0 EOSINOPHIL % (test code = EO%) % 0.0-5.0 BASOPHIL % (test code = BA%) % 0.0-1.0 NEUTROPHIL # (test code = NT#) K/mm3 1.8-7.7 LYMPHOCYTE # (test code = LY#) K/mm3 1.0-5.0 MONOCYTE # (test code = MO#) K/mm3 0-0.8 EOSINOPHIL # (test code = EO#) K/mm3 0.0-0.5 BASOPHIL # (test code = BA#) K/mm3 0.0-0.2 CBC W/AUTO [id number] 19:56:00* Test Item Value Reference Range Interpretation Comments WHITE BLOOD CELL (test code = WBC) 8.6 K/mm3 4.5-12.5 N RED BLOOD CELL (test code = RBC) 4.65 mill/mm3 4.0-5.8 N HEMOGLOBIN (test code = HGB) 13.9 gram/dL 13.0-17.5 N HEMATOCRIT (test code = HCT) 42.4 % 42.0-52.0 N MEAN CELL VOLUME (test code = MCV) 91.2 fL 80-98 N MEAN CELL HGB (test code = MCH) 29.9 picogram 27.0-33.0 N MEAN CELL HGB CONCETRATION (test code = MCHC) 32.8 gram/dL 33.0-36. 0 L RED CELL DISTRIBUTION WIDTH (test code = RDW) 12.9 % 11.6-16. 2 N RED CELL DISTRIBUTION WIDTH SD (test code = RDW-SD) 42.0 fL 37 .0-51.0 N PLATELET COUNT (test code = PLT) 232 K/mm3 150-450 N MEAN PLATELET VOLUME (test code = MPV) 11.5 fL 6.7-11.0 H NEUTROPHIL % (test code = NT%) 74.8 % 39.0-69.0 H IMMATURE GRANULOCYTE % (test code = IG%) 0.2 % 0.0-5.0 N LYMPHOCYTE % (test code = LY%) 16.5 % 25.0-55.0 L MONOCYTE % (test code = MO%) 7.1 % 0.0-10.0 N EOSINOPHIL % (test code = EO%) 1.2 % 0.0-5.0 N BASOPHIL % (test code = BA%) 0.2 % 0.0-1.0 N NUCLEATED RBC % (test code = NRBC%) 0.0 % 0-0 N NEUTROPHIL # (test code = NT#) 6.44 K/mm3 1.8-7.7 N IMMATURE GRANULOCYTE # (test code = IG#) 0.02 x10 3/uL 0-0.03 N LYMPHOCYTE # (test code = LY#) 1.42 K/mm3 1.0-5.0 N MONOCYTE # (test code = MO#) 0.61 K/mm3 0-0.8 N EOSINOPHIL # (test code = EO#) 0.10 K/mm3 0.0-0.5 N BASOPHIL # (test code = BA#) 0.02 K/mm3 0.0-0.2 N NUCLEATED RBC # (test code = NRBC#) 0.00 K/mm3 0.0-0.1 N MANUAL DIFF REQUIRED (test code = MDIFF) NO
== END 2020-03-15 09:50 | disposition home or self-care (01) ==
LOC: FSED 09:42
DX: N48.89 Other specified disorders of penis (principal)
CPT/HCPCS: 99282